=== PATIENT | female | born 1950 | race Caucasian/White ===

== ENCOUNTER 2023-03-11 21:51 | Emergency (ER) | payer MEDICARE ==
[~2023-03-11] VITALS: Ht 162.6 cm; Wt 69.5 kg
[2023-03-11 22:43] VITALS: BP 160/89
[2023-03-11] MEDS ORDERED: ondansetron/PF 4mg/2ml inj IV ONE (23:35)
[2023-03-11] MEDS ORDERED: ketorolac trometh. 30mg/ml inj. IV ONE (23:35)
[2023-03-11] MEDS ORDERED: HYDROcodone/acetaminophen 5mg/325mg tablet PO ONE (23:35)
[2023-03-11] MEDS ORDERED: normal saline 1000ml 1,000 ML IV ONE (23:35)
[2023-03-11] MEDS ORDERED: morphine 4 MG/ML inj SYRINge IV ONE (23:55)
[2023-03-12 00:29] LABS: BASOPHILS # (AUTO) 0.1 X10'3 (0-0.2); BASOPHILS % (AUTO) 0.5 % (0-1); EOSINOPHILS # (AUTO) 0.2 X10'3 (0-0.9); EOSINOPHILS % (AUTO) 1.5 % (0-6); HEMOGLOBIN 14.5 g/dl (12.0-16.0); LYMPHOCYTES # (AUTO) 2.9 X10'3 (1.1-4.8); LYMPHOCYTES % (AUTO) 26.6 % (21-51); MEAN CORPUSCULAR HEMOGLOBIN 30.4 PG (27.0-31.0); MEAN CORPUSCULAR HGB CONC 33.8 g/dL (33.0-36.5); MEAN CORPUSCULAR VOLUME 89.8 FL (78-98); MEAN PLATELET VOLUME 8.4 FL (7.4-10.4); MONOCYTES # (AUTO) 0.9 X10'3 (0-0.9); MONOCYTES % (AUTO) 8.4 % (2-12); PLATELET COUNT 285 X10'3 (140-440); RED BLOOD COUNT 4.79 X10'6 (4.20-5.60); WHITE BLOOD COUNT 11.1 X10'3 (4.5-11.0)
[2023-03-12 00:51] LABS: ALANINE AMINOTRANSFERASE 22 U/L (12-78); ALBUMIN 3.7 G/DL (3.4-5.0); ALBUMIN/GLOBULIN RATIO 1.2 (1.1-1.5); ALKALINE PHOSPHATASE 65 IU/L (46-116); ANION GAP 7 (8-16); ASPARTATE AMINO TRANSFERASE 21 U/L (10-37); BILIRUBIN,TOTAL 0.2 MG/DL (0.1-1.0); BLOOD UREA NITROGEN 17 MG/DL (7-18); CHLORIDE 103 MMOL/L (99-107); CREATININE 1.13 MG/DL (0.40-0.90); GLUCOSE 122 MG/DL (70-104); LIPASE 114 U/L (73-393); POTASSIUM 3.9 MMOL/L (3.5-5.1); SODIUM 139 MMOL/L (135-145); TOTAL CARBON DIOXIDE 29.4 MMOL/L (24-32); TOTAL PROTEIN 6.9 G/DL (6.4-8.2); eGFR 47 ML/MIN
[2023-03-12 01:00] LABS: CALCIUM 9.5 MG/DL (8.5-10.1)
[2023-03-12 01:13] LABS: CLARITY,URINE CLEAR (Clear); GLUCOSE, URINE NEGATIVE (Neg); KETONES,URINE NEGATIVE (Neg); LEUKOCYTE ESTERASE ,URINE NEGATIVE (Neg); OCCULT BLOOD,URINE MODERATE (Neg); PROTEIN,URINE NEGATIVE (Neg); UROBILINOGEN,URINE 0.2 E.U/dL (0.2-1.0)
[2023-03-12 01:28] LABS: COLOR,URINE DARK YELLOW (Yellow); UA COLLECTION TYPE CLN CATCH MIDSTREAM
[2023-03-12 01:29] LABS: NITRITES, URINE NEGATIVE (Neg)
[2023-03-12 01:30] LABS: SQUAMOUS EPITHELIAL CELL,UR MODERATE /LPF (FEW); WBC,URINE 0-4 /HPF (0-4)
[2023-03-12 01:31] LABS: BACTERIA,URINE FEW /HPF (Neg)
[2023-03-12] MEDS ORDERED: tamsulosin 0.4mg capsule PO ONE (01:35)
[2023-03-12] MEDS ORDERED: HYDROcodone/acetaminophen 5mg/325mg tablet PO ONE (01:35)
[2023-03-12] MEDS ORDERED: ONDA8TAB13 PO (01:35)
[2023-03-12] MEDS ORDERED: HYDR-3965 PO (01:35)
[2023-03-13] MEDS ORDERED: FLO0.4C PO (06:22)
[2023-03-13] MEDS ORDERED: METO-292 PO (06:22)
== END 2023-03-12 01:59 | disposition home or self-care (01) ==
LOC: ER 21:51
DX: N20.0 Calculus of kidney (principal); E78.00 Pure hypercholesterolemia, unspecified; Z88.8 Allergy status to other drugs, medicaments and biological substances; Z90.710 Acquired absence of both cervix and uterus
CPT/HCPCS: 36415; 74176; 80053; 81001; 83690; 84145; 85025; 96374; 96375; 99285; J1885; J2270; J2405; J7030

== ENCOUNTER 2023-03-13 01:15 | Emergency (ER) | payer MEDICARE ==
[~2023-03-13] VITALS: Ht 162.6 cm; Wt 72.6 kg
[~2023-03-13 01:15] MED LIST: HYDR-3965 PO; ONDA8TAB13 PO
[2023-03-13] MEDS ORDERED: morphine 4 MG/ML inj SYRINge IV STA ×2 (03:07→05:07)
[2023-03-13] MEDS ORDERED: ondansetron/PF 4mg/2ml inj IV STA (03:07)
[2023-03-13] MEDS ORDERED: normal saline 1000ml 1,000 ML IVB ONE (03:10)
[2023-03-13 03:36] LABS: CLARITY,URINE SLIGHTLY CLOUDY (Clear); COLOR,URINE YELLOW (Yellow); GLUCOSE, URINE NEGATIVE (Neg); KETONES,URINE 40 mg/dl (Neg); LEUKOCYTE ESTERASE ,URINE NEGATIVE (Neg); NITRITES, URINE NEGATIVE (Neg); OCCULT BLOOD,URINE MODERATE (Neg); PROTEIN,URINE NEGATIVE (Neg); UROBILINOGEN,URINE 0.2 E.U/dL (0.2-1.0)
[2023-03-13 03:36] LABS: BASOPHILS % (AUTO) 0.4 % (0-1); EOSINOPHILS # (AUTO) 0.1 X10'3 (0-0.9); EOSINOPHILS % (AUTO) 1.3 % (0-6); HEMATOCRIT 40.8 % (35.0-45.0); HEMOGLOBIN 13.7 g/dl (12.0-16.0); LYMPHOCYTES # (AUTO) 2.7 X10'3 (1.1-4.8); LYMPHOCYTES % (AUTO) 29.7 % (21-51); MEAN CORPUSCULAR HEMOGLOBIN 30.4 PG (27.0-31.0); MEAN CORPUSCULAR HGB CONC 33.5 g/dL (33.0-36.5); MEAN PLATELET VOLUME 7.7 FL (7.4-10.4); MONOCYTES # (AUTO) 0.7 X10'3 (0-0.9); MONOCYTES % (AUTO) 7.5 % (2-12); NEUTROPHILS # (AUTO) 5.6 X10'3 (1.8-7.7); NEUTROPHILS % (AUTO) 61.1 % (42-75); PLATELET COUNT 252 X10'3 (140-440); RED BLOOD COUNT 4.49 X10'6 (4.20-5.60); RED CELL DISTRIBUTION WIDTH 14.5 % (11.5-14.5); WHITE BLOOD COUNT 9.2 X10'3 (4.5-11.0)
[2023-03-13 03:47] LABS: UA COLLECTION TYPE CLN CATCH MIDSTREAM
[2023-03-13 03:48] LABS: WBC,URINE 0-4 /HPF (0-4)
[2023-03-13 03:49] LABS: ALANINE AMINOTRANSFERASE 21 U/L (12-78); ALBUMIN 3.6 G/DL (3.4-5.0); ALBUMIN/GLOBULIN RATIO 1.2 (1.1-1.5); ALKALINE PHOSPHATASE 63 IU/L (46-116); ANION GAP 4 (8-16); ASPARTATE AMINO TRANSFERASE 20 U/L (10-37); BILIRUBIN,TOTAL 0.4 MG/DL (0.1-1.0); BLOOD UREA NITROGEN 12 MG/DL (7-18); BUN/CREATININE RATIO 13.8 (10.0-20.0); CALCIUM 9.1 MG/DL (8.5-10.1); CHLORIDE 100 MMOL/L (99-107); CREATININE 0.87 MG/DL (0.40-0.90); GLUCOSE 112 MG/DL (70-104); LIPASE 87 U/L (73-393); POTASSIUM 3.9 MMOL/L (3.5-5.1); SODIUM 133 MMOL/L (135-145); TOTAL CARBON DIOXIDE 29.2 MMOL/L (24-32); TOTAL PROTEIN 6.7 G/DL (6.4-8.2); eGFR 64 ML/MIN
[2023-03-13 03:49] LABS: BACTERIA,URINE 2+ /HPF (Neg); MUCUS STRANDS FEW /LPF (Neg); RBC,URINE 20-50 /HPF (0-2); SQUAMOUS EPITHELIAL CELL,UR MANY /LPF (FEW)
[2023-03-13 04:15] VITALS: BP 147/80
[2023-03-13] MEDS ORDERED: metoclopramide 5 mg/ml inj IV STA (05:07)
--- NOTE | 2023-03-13 05:08 | NUR ---
pt was up and to the BR. C/O more nausea and the pain is coming back. MD made aware and orders received and written. US at the BS.
--- NOTE | 2023-03-13 06:19 | NUR ---
ASSUMED PT CARE. PT UP TO THE BATHROOM. AMBULATING W/O ASSISTANCE. NO COMPLAINTS OR REQUESTS AT THIS TIME.
[2023-03-13] MEDS ORDERED: METO-292 PO (06:22)
[2023-03-13] MEDS ORDERED: FLO0.4C PO (06:22)
== END 2023-03-13 06:47 | disposition home or self-care (01) ==
LOC: ER 01:15
DX: N20.0 Calculus of kidney (principal); I11.9 Hypertensive heart disease without heart failure; E78.00 Pure hypercholesterolemia, unspecified; Z88.2 Allergy status to sulfonamides; Z79.899 Other long term (current) drug therapy
CPT/HCPCS: 36415; 76770; 80053; 81001; 83690; 85025; 96361; 96374; 96375; 96376; 99285; J2270; J2405; J2765; J7030